=== PATIENT | male | born 1965 | race Caucasian/White ===

== ENCOUNTER 2019-04-03 11:50 | Emergency (ER) | payer OTHER ==
[2019-04-03 11:58] VITALS: TEMP 98.7
[2019-04-03] MEDS ORDERED: LIDOCAINE 1%/EPI 1:200,000 MPF 10 ML VIAL SQ STA (12:45)
[2019-04-03] MEDS ORDERED: LIDOCAINE 1%-EPI 1:100,000 20 ML VIAL SQ STA (13:36)
[2019-04-03] MEDS ORDERED: KETOROLAC 30 MG/ML 1 ML VIAL IM STA (14:02)
[2019-04-03 14:52] VITALS: BP 130/90; PULSE 90; RESP 13
--- NOTE | 2019-04-03 14:52 | ED ---
General Adult HPI - General Chief complaint: Wound/Laceration Stated complaint: leg lac-sent by [employer] Time Seen by Provider: 04/03/19 12:38 Source: patient, RN notes reviewed Mode of arrival: wheelchair Limitations: no limitations - History of Present Illness Initial comments: 53-year-old male presents to the emergency department for a chief laceration. Patient states that he was walking into his house when he cut his right calf on a screw head that was coming out of the wall. States he went to urgent care and they were concerned because they could not get it to stop bleeding so he was sent to the emergency department. States tetanus was updated 2 years ago. Denies any weakness of the calf or difficulty standing on his toes or heel rais ing. Denies any other injuries. Did not hit his head.Patient has no other complaints at this time including shortness of breath, chest pain, abdominal pain, nausea or vomiting, headache, or visual changes. - Related Data Home Medications Medication Instructions Recorded Confirmed Gabapentin 600 mg PO BID 04/03/19 04/03/19 Ibuprofen [Motrin] 800 mg PO TID 04/03/19 04/03/19 Insulin Glargine,Hum.rec.anlog 24 unit SQ DAILY 04/03/19 04/03/19 [Basaglar Kwikpen U-100] Insulin Lispro [Admelog Solostar] See Protocol SQ AC-TID 04/03/19 04/03/19 glipiZIDE [Glucotrol] 10 mg PO BID 04/03/19 04/03/19 metFORMIN HCL 1,000 mg PO BID 04/03/19 04/03/19 Allergies Allergy/AdvReac Type Severity Reaction Status Date / Time No Known Allergies Allergy Verified 04/03/19 12:51 Review of Systems ROS Statement: Those systems with pertinent positive or pertinent negative responses have been documented in the HPI. ROS Other: All systems not noted in ROS Statement are negative. Past Medical History Past Medical History: Diabetes Mellitus History of Any Multi-Drug Resistant Organisms: None Reported Past Surgical History: No Surgical Hx Reported Past Psychological History: No Psychological Hx Reported Smoking Status: Never smoker Past Alcohol Use History: None Reported Past Drug Use History: None Reported General Exam Limitations: no limitations General appearance: alert, in no apparent distress Head exam: Present: atraumatic, normocephalic, normal inspection Eye exam: Present: normal appearance, PERRL, EOMI. Absent: scleral icterus, conjunctival injection, periorbital swelling ENT exam: Present: normal exam, mucous membranes moist Neck exam: Present: normal inspection, full ROM. Absent: tenderness, meningismus, lymphadenopathy Respiratory exam: Present: normal lung sounds bilaterally. Absent: respiratory distress, wheezes, rales, rhonchi, stridor Cardiovascular Exam: Present: regular rate, normal rhythm, normal heart sounds. Absent: systolic murmur, diastolic murmur, rubs, gallop, clicks Extremities exam: Present: full ROM (Full range motion of the right lower extremities. Full strength when heel raising. Full extension of the foot.), normal capillary refill (Capillary refill is 2 seconds, DP pulse 2+ the right lower extremity.), other (Patient has a 4 cm laceration noted to the lateral right calf. This extends into subcutaneous tissue. No evidence for foreign body retained. No tendon injury or other deep structure injury. There is a small superficial arterial that is bleeding.) Course Vital Signs 04/03/19 04/03/19 11:54 14:51 Temperature 98.7 F Pulse Rate 113 H 90 Respiratory 18 13 Rate Blood Pressure 156/96 130/90 O2 Sat by Pulse 97 99 Oximetry Procedures - Laceration Laceration #1 Consent Obtained: verbal consent Indication: laceration Site: lower extremity Size (cm): 4 Description: linear Depth: simple, single layer Anesthetic Used: lidocaine 1%, with epi Anesthesia Technique: local infiltration Amount (mls): 6 Pre-repair: wound explored, irrigated extensively, deep structures intact Type of Sutures: nylon (1 5-0 rapide absorbable), other (ethilon) Size of Sutures: 4-0 (8) Number of Sutures: 8 Technique: simple, interrupted (1), running (7) Patient Tolerated Procedure: well, no complications Medical Decision Making - Medical Decision Making 53-year-old male presents for laceration to the right lateral calf. Patient was walking when his calf pulled against a screw head and it cut him. Patient was seen at urgent care but they were concerned for the bleeding as there is a small arterial bleeding. No evidence of tendon injury. Patient has full range motion and full strength in the right lower extremity. Neurovascular status intact. She does have a 4 cm lateral laceration to the right mid calf without evidence of deep structure injury or foreign body. Wound was cleaned thoroughly with saline pressure irrigation. Small arterial was tied off with 1 figure 8 absorbable suture. Bleeding controlled at this time. Wound was sutured with 8 sutures. Patient will follow-up with primary care in 1-2 days. He will return in 10 days for suture removal. He will return earlier if he has any signs of infection which were discussed with him. Disposition Clinical Impression: Laceration Disposition: HOME SELF-CARE Condition: Good Instructions (If sedation given, give patient instructions): Care For Your Stitches (ED), Laceration (ED) Additional Instructions: Please follow up with primary care in 1-2 days. Return in 10 days to have sutures removed. Monitor for signs of infection such as spreading or streaking redness, drainage, or fever and return sooner if these occur. Is patient prescribed a controlled substance at d/c from ED?: No Referrals: Italo Boggs MD [Primary Care Provider] - 1-2 days Time of Disposition: 14:51
== END 2019-04-03 14:55 | disposition home or self-care (01) ==
LOC: EC 11:50
DX: S81.811A Laceration without foreign body, right lower leg, initial encounter (principal); E11.9 Type 2 diabetes mellitus without complications; Z79.4 Long term (current) use of insulin; Z79.1 Long term (current) use of non-steroidal anti-inflammatories (NSAID); Z79.899 Other long term (current) drug therapy; W45.8XXA Other foreign body or object entering through skin, initial encounter; Y92.009 Unspecified place in unspecified non-institutional (private) residence as the place of occurrence of the external cause
CPT/HCPCS: 99282; 12002; 96372; J1885

== ENCOUNTER 2019-04-10 05:51 | Emergency (ER) | payer OTHER ==
[2019-04-10 05:56] VITALS: BP 148/89; PULSE 72; RESP 18; TEMP 97.6
[2019-04-10] MEDS ORDERED: CEPHALEXIN 500MG STARTER PACK 4 CAP BTL PO STA (06:06)
[2019-04-10] MEDS ORDERED: SULFAMETH-TMP DS STARTER PACK 2 TAB BTL PO STA (06:06)
--- NOTE | 2019-04-10 06:25 | ED ---
General Adult HPI - General Chief complaint: Recheck/Abnormal Lab/Rx Stated complaint: Recheck R Leg Pain Time Seen by Provider: 04/10/19 06:01 Source: patient, RN notes reviewed Mode of arrival: ambulatory Limitations: no limitations - History of Present Illness Initial comments: 53-year-old male presents to the emergency department for a chief complaint of pain over laceration and suture site. Patient states that this was done about 7 days ago here in the emergency department. States that over the past 2 days he started to have pain in this area. States it is a sharp pain that comes and goes intermittently. States that it was bothering him last night. However denies any pain at this time. Denies any fevers or chills. Denies any drainage from the site. Denies any increased redness. States the redness is improving somewhat.Patient has no other complaints at this time including shortness of breath, chest pain, abdominal pain, nausea or vomiting, headache, or visual changes. - Related Data Home Medications Medication Instructions Recorded Confirmed Gabapentin 600 mg PO BID 04/03/19 04/10/19 Ibuprofen [Motrin] 800 mg PO TID 04/03/19 04/10/19 Insulin Glargine,Hum.rec.anlog 24 unit SQ DAILY 04/03/19 04/10/19 [Basaglar Kwikpen U-100] Insulin Lispro [Admelog Solostar] See Protocol SQ AC-TID 04/03/19 04/10/19 glipiZIDE [Glucotrol] 10 mg PO BID 04/03/19 04/10/19 metFORMIN HCL 1,000 mg PO BID 04/03/19 04/10/19 Previous Rx's Medication Instructions Recorded Cephalexin [Keflex] 500 mg PO Q6HR 10 Days #40 cap 04/10/19 Sulfamethox-Tmp 800-160Mg [Bactrim 1 tab PO Q12HR 10 Days #20 tab 04/10/19 DS 800-160 mg] Allergies Allergy/AdvReac Type Severity Reaction Status Date / Time No Known Allergies Allergy Verified 04/10/19 06:32 Review of Systems ROS Statement: Those systems with pertinent positive or pertinent negative responses have been documented in the HPI. ROS Other: All systems not noted in ROS Statement are negative. Past Medical History Past Medical History: Diabetes Mellitus History of Any Multi-Drug Resistant Organisms: None Reported Past Surgical History: No Surgical Hx Reported Past Psychological History: No Psychological Hx Reported Smoking Status: Never smoker Past Alcohol Use History: None Reported Past Drug Use History: None Reported General Exam Limitations: no limitations General appearance: alert, in no apparent distress Head exam: Present: atraumatic, normocephalic, normal inspection Eye exam: Present: normal appearance, PERRL, EOMI. Absent: scleral icterus, conjunctival injection, periorbital swelling ENT exam: Present: normal exam, mucous membranes moist Neck exam: Present: normal inspection. Absent: tenderness, meningismus, lymphadenopathy Respiratory exam: Present: normal lung sounds bilaterally. Absent: respiratory distress, wheezes, rales, rhonchi, stridor Cardiovascular Exam: Present: regular rate, normal rhythm, normal heart sounds. Absent: systolic murmur, diastolic murmur, rubs, gallop, clicks Extremities exam: Present: normal capillary refill (Capillary refill less than 2 seconds, DP pulse 2+ in the right lower extremity.), other (There is a 4 cm laceration on the lateral right calf, mild erythema surrounding this area however no purulent drainage. No evidence of abscess. No significant increased warmth.). Absent: calf tenderness (No calf tenderness, no edema in the leg.) Course Vital Signs 04/10/19 05:52 Temperature 97.6 F Pulse Rate 72 Respiratory 18 Rate Blood Pressure 148/89 O2 Sat by Pulse 100 Oximetry Medical Decision Making - Medical Decision Making 53-year-old male presents to the emergency department for chief complaint of pain over the laceration site. Patient had sutures placed about 7 days ago. States that 2 days ago he started to have pain. Denies fevers or chills. Denies spreading redness. States his pain is intermittent and right now he does not have any pain. On exam patient is mild erythema localized over the 4 cm laceration. No drainage whatsoever. No fluctuance palpated concerning for abscess. Bedside ultrasound was performed and there is no obvious fluid collection at this time. X-ray showed no acute osseous findings. This was reviewed, no evidence for foreign bodies. Pain may be caused by early stages of infection. Therefore he'll be treated with Keflex and Bactrim. He will follow up with primary care. He will return if he has any worsening symptoms, spreading or streaking redness. Disposition Clinical Impression: Laceration Disposition: HOME SELF-CARE Condition: Good Instructions (If sedation given, give patient instructions): Cellulitis (ED) Additional Instructions: Please monitor for signs of worsening infection such as spreading redness, streaking redness, drainage or fever and return if these occur. Take antibiotic as directed. Follow up with primary care in 1-2 days. Return to have sutures removed on directed day. Prescriptions: Sulfamethox-Tmp 800-160Mg [Bactrim DS 800-160 mg] 1 tab PO Q12HR 10 Days #20 tab Cephalexin [Keflex] 500 mg PO Q6HR 10 Days #40 cap Is patient prescribed a controlled substance at d/c from ED?: No Referrals: Italo Boggs MD [Primary Care Provider] - 1-2 days Time of Disposition: 06:43
--- NOTE | 2019-04-10 06:29 | XR ---
EXAM: XR Right Tibia and Fibula, 2 Views CLINICAL HISTORY: ITS.REASON XR Reason: Pain TECHNIQUE: Frontal and lateral views of the right tibia and fibula. COMPARISON: No relevant prior studies available. FINDINGS: Bones/joints: No acute fracture. No dislocation. Soft tissues: Unremarkable. No radiopaque foreign body. IMPRESSION: No acute osseous findings.
== END 2019-04-10 06:57 | disposition home or self-care (01) ==
LOC: EC 05:51
DX: S81.811A Laceration without foreign body, right lower leg, initial encounter (principal); L53.9 Erythematous condition, unspecified; E11.9 Type 2 diabetes mellitus without complications; Z79.4 Long term (current) use of insulin; Z79.1 Long term (current) use of non-steroidal anti-inflammatories (NSAID); Z79.899 Other long term (current) drug therapy
CPT/HCPCS: 99284

== ENCOUNTER 2020-05-31 10:45 | Day surgery (SDC) | payer OTHER ==
[2020-05-29 11:06] VITALS: BMI 25.1
[~2020-05-31 10:45] MED LIST: DEXAMETHASONE SOD PHOSPHATE 10 MG/ML 1 ML VIAL IV ONE; HYDROmorphone 0.5 MG/0.5 ML SYRINGE IVP PRN; LACTATED RINGERS 1,000 ML IV SCH; MIDAZOLAM 2 MG/2 ML VIAL IV PRN; ONDANSETRON 4 MG/2 ML VIAL IVP ONE; SCOPOLAMINE 1.5MG/72HR PATCH TRANSDERM ONE
[2020-05-31 11:36] LABS: Glucose,Whole Blood 199 mg/dL (75-99)
[2020-05-31] MEDS ORDERED: fentaNYL (PF) 50 MCG/ML 2 ML AMP ONE (12:32)
[2020-05-31] MEDS ORDERED: PHENYLEPHRINE-0.9% NACL SYG 1 MG/10 ML SYRINGE ONE (12:32)
[2020-05-31] MEDS ORDERED: LIDOCAINE 1% INJ 10MG/ML (20 ML MDV) ONE (12:32)
[2020-05-31] MEDS ORDERED: PROPOFOL 10 MG/ML 20 ML VIAL IV ONE (12:32)
[2020-05-31] MEDS ORDERED: MIDAZOLAM 2 MG/2 ML VIAL ONE (12:32)
[2020-05-31] MEDS ORDERED: SUCCINYLCHOLINE CHLORIDE 100 MG/5 ML SYR IV ONE (12:32)
[2020-05-31] MEDS ORDERED: LIDOCAINE 1%-EPI 1:100,000 20 ML VIAL SQ ONE (12:37)
[2020-05-31] MEDS ORDERED: BUPIVACAINE (PF) 0.5% 30 ML VIAL SQ ONE (12:37)
[2020-05-31] MEDS ORDERED: LIDOCAINE 2% INJ 20 MG/ML SQ ONE (12:37)
[2020-05-31] MEDS ORDERED: LACTATED RINGERS 1,000 ML IV ONE ×2 (13:12→16:27)
[2020-05-31 16:46] LABS: Glucose,Whole Blood 236 mg/dL (75-99)
[2020-05-31] MEDS ORDERED: INSULIN ASPART (NovoLOG) 100 UNIT/ML VIAL SQ ONE (16:49)
[2020-05-31] MEDS ORDERED: KETOROLAC 15 MG/ML 1 ML VIAL IVP ONE (17:27)
[2020-05-31 17:54] VITALS: TEMP 98.6
[2020-05-31 18:15] VITALS: BP 128/83; PULSE 91; RESP 14
--- NOTE | 2020-06-16 23:28 | P.OP ---
Date of Procedure: 05/31/20 Preoperative Diagnosis: 1. 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 Release of Dupuytrens contractures of the left thumb, index and small fingers with partial palmar fasciectomy. 2. Examination and manipulation under anesthesia left index and small finger PIP joints. 3. Left small finger wound closure with adjacent tissue transfer (~3 sq. cm). Anesthesia: GETA, local Surgeon: Adam Barros Counter Supply Worker #1: Shayla Baumann Estimated Blood Loss (ml): 15 Pathology: none sent Condition: stable Disposition: PACU Indications for Procedure: The patient is a 54-year-old male who presented to the office with progressive contractures of both hands. He was diagnosed with Dupuytrens palmar fibromat osis. He was previously treated with collagenase injection on the right. This improved, but not completely resolved, the right hand contractures. Treatment options (and associated risks & benefits) were discussed in the office; the patient elected to pursue operative treatment for the left hand with excision of the Dupuytrens cords and contracture releases. We specifically discussed the potential for incomplete residual contractures as well as the expectation for eventual recurrent contractures. He expressed understanding and willingness to accept these risks. In preop, additional questions were addressed and the patient wished to proceed with surgery. Consent forms were signed. The operative sites were confirmed with the patient and marked in preop. Description of Procedure: The patient was brought to the operating suite and positioned supine, with the operative arm on a hand table. Anesthesia was administered uneventfully. Utilizing aseptic technique, a wrist block was performed using local anesthetic without epinephrine. The left upper extremity was prepped and draped in standard, sterile fashion. A time-out was performed, confirming patient devyn ntifiers, the operative side, the sites and the procedures to be performed: all team members expressed agreement. The limb was exsanguinated with an Esmarch and the tourniquet was inflated. Loupe magnification was utilized throughout the case for optimal visualization. The small finger was approached first. A longitudinal incision was made overlying the pretendinous cord in the palm along the fifth ray, extending into the small finger. The skin was sharply incised. The cord was adherent to the skin at the distal palmar crease and full-thickness skin flaps were sharply developed. The subcutaneous tissues were remarkably dense. The neurovascular bundles were identified proximally and distally. In addition to the thickened transverse bands of the palmar aponeurosis, there were extensive branching fascial connections extending from the cord to the surrounding tissues, though not in well-defined sheets. The cord was transected proximally near the base of the hypothenar eminence and sharply dissected off the flexor sheath to its attachment near the PIP joint capsule. Once the contracted pathologic tissue was resected, there was full extension at the MCP joint but residual PIP co ntracture. No obvious restricting fascial bands were identified. Examination under anesthesia revealed good passive motion and smooth tendon gliding without discrete flexor tendon adhesions. The PIP joint was carefully manipulated, slowly applying extension force with the MCP joint flexed. A small pop occurred, resulting in improved PIP extension. Approximately 15-20 of residual PIP contracture remained. The wound was irrigated and covered and attention was turned to the index finger. A Augusto-style zigzag incision was marked along the second ray, extending into the index finger. The skin was incised and full-thickness skin flaps were developed. The ulnar neurovascular bundle was easily identified proximally and distally but the radial NVB was obscured by the broad lateral cord. The cord was sharply dissected off the palmar skin and the NVB was identified along the proximal radial border of the cord, rotating around the spiral cord as it progressed distally. It was carefully dissected free and the cord was traced proximally to the first web space. There was a Y-connection to the thenar cord of the thumb. A zigzag incision was marked over the cord at the base of the thenar eminence extending along the thumb proximal phalanx. The skin was sharply incised but, again, the thickened palmar fascia was firmly adherent to the dermis. The neurovascular bundles were identified proximally and sharp dissection was used to create full-thickness skin flaps. The pathologic tissue at this level was much more diffuse, not organized into a well-defined cord in the thumb itself but did extend as a discrete cord along the first web space. Working through both incisions, the thenar/first web space cord was sharply resected. Once the fibrosed tissue was released and excised, thumb and index extension improved, as did thumb radial and palmar abduction. After release, there was full index MCP extension with a residual 35 PIP flexion contracture. The patient had admitted that there had been contracture at this joint for longer than the cord had been present. Examination revealed good passive flexion but a fairly firm endpoint when attempting passive extension. A manual manipulation was attempted but there was only a marginal improvement in the joint alignment. Given the amount of releases that were already performed, the decision was made not to attempt further contracture release at this time (and risk worsening post-op contractures). The wounds were copiously irrigated with normal saline. The tourniquet was released after 119 minutes at 150 mmHg; hemostasis was obtained with manual pressure and bipolar cautery. The zigzag incisions were closed primarily with interrupted 4-0 and 5-0 nylon sutures. Given the degree and chronicity of the small finger contracture, a Z-plasty was performed for the small finger. Skin flaps (60) were designed at the level of the distal palmar crease. These were sharply raised and rotated to elongate and dispersed the tension along the incision. All wounds closed completely and without tension. A sterile dressing was applied, followed by a resting plaster splint with the fingers in maximum extension and the thumb in relative extension and palmar abduction. All sponge, needle and instrument counts were correct at the end of the case. The patient tolerated the procedure well and was taken to the recovery room in stable condition.
== END 2020-05-31 18:36 | disposition home or self-care (01) ==
LOC: OR 10:45 → 1SOBS 16:22 → OR 18:36
PROVIDERS: ATTEND Orthopaedic Surgery
DX: M72.0 Palmar fascial fibromatosis [Dupuytren] (principal); Z79.899 Other long term (current) drug therapy; I11.9 Hypertensive heart disease without heart failure; E11.9 Type 2 diabetes mellitus without complications; E78.5 Hyperlipidemia, unspecified; R00.2 Palpitations; Z98.890 Other specified postprocedural states; Z79.891 Long term (current) use of opiate analgesic; Z79.1 Long term (current) use of non-steroidal anti-inflammatories (NSAID); Z79.4 Long term (current) use of insulin
CPT/HCPCS: 26123; 26125 ×2; J2001 ×2; J2250; J1100; J0690; J2405; J3010; J1885; J2370; J0330; J2704; J1170